=== PATIENT | male | born 1950 | race Caucasian/White ===

== ENCOUNTER 2021-12-30 06:52 | Inpatient (IN) ==
[2021-12-30] MEDS ORDERED: SODIUM CHLORIDE 0.9% 1,000 ML IV STA ×2 (07:33→09:01)
[2021-12-30] MEDS ORDERED: ONDANSETRON 4 MG/2 ML VIAL IV STA (07:33)
[2021-12-30] MEDS ORDERED: HYDROmorphone 1 MG/1 ML SYRINGE IV STA ×2 (07:33→09:39)
[2021-12-30 08:00] LABS: Basophils # 0.1 10*3/uL (0.0-0.2); Basophils % 0.4 % (0.0-0.8); Eosinophils % 0.1 % (0.00-10.9); Hematocrit 46.6 VOL% (42.0-52.0); Hemoglobin 15.1 GM/DL (14.0-18.0); Immature Granulocytes % 0.4 %; Immature Granulocytes Absolute 0.08 #; Lymphocytes # 1.8 10*3/uL (1.4-4.0); Lymphocytes % 9.5 % (21.2-54.2); Mean Corpuscular HGB Conc 32.4 GM/DL (32-36); Mean Corpuscular Volume 91.2 FL (87-102); Mean Platelet Volume 10.4 FL (9.6-12.0); Monocytes # 1.1 10*3/uL (0.11-0.8); Monocytes % 5.8 % (1.7-12.7); Neutrophils % 83.8 % (38.7-73.9); Platelet Count 275 T/CUMM (130-400); Red Blood Count 5.11 MC/CUMM (3.8-5.5); Red Cell Distribution Width 14.3 % (9.3-17.3); White Blood Count 18.7 T/CUMM (4-12)
[2021-12-30 08:01] LABS: Mucus,Urine Occasional /LPF (Occasional); Protein,Urine >=300 mg/dL (Negative); RBC,Urine 2 /HPF (0-4); Urine Appearance Clear (Clear); Urine Color Yellow (Yellow); Urine Specific Gravity 1.025 (1.001-1.035)
[2021-12-30 08:02] LABS: Bilirubin,Urine Small mg/dL (Negative); Blood, Urine Small mg/dL (Negative); Glucose,Urine (UA) 100 mg/dL (Negative); Ketones,Urine Negative (Negative); Nitrite,Urine Negative (Negative)
[2021-12-30 08:29] LABS: Alanine Aminotransferase 342 U/L (16-61); Albumin 3.6 G/DL (3.4-5.0); Alkaline Phosphatase 241 U/L (45-117); Aspartate Amino Transferase 271 U/L (0-37); Blood Urea Nitrogen 32 MG/DL (7-18); Calcium 10.1 MG/DL (8.5-10.1); Carbon Dioxide 23 MMOL/L (21-32); Chloride 105 MMOL/L (98-107); Glucose 245 MG/DL (74-106); Osmolality,Calculated 289.7 MOS/KG (273-304); Potassium 4.4 MMOL/L (3.5-5.1); Sodium 138 MMOL/L (136-145); Total Protein 7.3 G/DL (6.4-8.2)
[2021-12-30] MEDS ORDERED: PIPERACILLIN/TAZOBACTAM 3,375 MG in SODIUM CHLORIDE 0.9% 100 ML IV STA (08:41)
[2021-12-30] MEDS ORDERED: HYDROmorphone 1 MG/1 ML SYRINGE IV PRN (13:27)
[2021-12-30] MEDS: SODIUM CHLORIDE 0.45% 1,000 ML IV SCH (13:35)
[2021-12-30] MEDS: hydroCHLOROthiazide 25 MG TABLET PO SCH (14:19)
[2021-12-30] MEDS ORDERED: CALCIUM CARBONATE CHEW 500 MG TABLET PO PRN (14:57)
[2021-12-30] MEDS: allopurinoL 100 MG TABLET PO SCH (15:30)
[2021-12-30] MEDS: LOSARTAN 50 MG TABLET PO SCH (15:31)
[2021-12-30] MEDS: POLYETHYLENE GLYCOL POWDER 17 GM PACK PO SCH (16:12)
[2021-12-30] MEDS: PIPERACILLIN/TAZOBACTAM 3,375 MG in SODIUM CHLORIDE 0.9% 100 ML IV SCH (17:13)
[2021-12-30] MEDS: DOCUSATE SODIUM 100 MG CAPSULE PO SCH (21:21)
[2021-12-30] MEDS: PANTOPRAZOLE 40 MG TABLET PO SCH (21:21)
[2021-12-30] MEDS: diphenhydrAMINE CAP 25 MG CAPSULE PO SCH (21:21)
[2021-12-31] MEDS: SODIUM CHLORIDE 0.45% 1,000 ML IV SCH (00:07)
[2021-12-31] MEDS: PIPERACILLIN/TAZOBACTAM 3,375 MG in SODIUM CHLORIDE 0.9% 100 ML IV SCH ×3 (00:07→20:54)
[2021-12-31 05:07] LABS: Basophils # 0.1 10*3/uL (0.0-0.2); Basophils % 0.4 % (0.0-0.8); Eosinophils # 0.1 10*3/uL (0.0-0.87); Eosinophils % 1.2 % (0.00-10.9); Hemoglobin 10.5 GM/DL (14.0-18.0); Immature Granulocytes % 0.4 %; Immature Granulocytes Absolute 0.05 #; Lymphocytes # 1.2 10*3/uL (1.4-4.0); Lymphocytes % 10.3 % (21.2-54.2); Mean Corpuscular HGB Conc 31.8 GM/DL (32-36); Mean Platelet Volume 10.7 FL (9.6-12.0); Monocytes # 0.9 10*3/uL (0.11-0.8); Monocytes % 7.7 % (1.7-12.7); Platelet Count 148 T/CUMM (130-400); Red Blood Count 3.55 MC/CUMM (3.8-5.5); Red Cell Distribution Width 14.3 % (9.3-17.3); White Blood Count 11.2 T/CUMM (4-12)
[2021-12-31 05:22] LABS: INR 1.1; PT Patient Result 11.9 SECS (10.5-12.0)
[2021-12-31 05:33] LABS: Albumin 2.4 G/DL (3.4-5.0); Bilirubin,Total 1.5 MG/DL (0.20-1.00); Calcium 8.1 MG/DL (8.5-10.1); Osmolality,Calculated 286.7 MOS/KG (273-304); Potassium 4.3 MMOL/L (3.5-5.1); Total Protein 5.8 G/DL (6.4-8.2)
[2021-12-31] MEDS: SODIUM CHLORIDE 0.9% 1,000 ML IV SCH ×4 (07:31→21:00)
[2021-12-31] MEDS ORDERED: INDOMETHACIN SUPP 50 MG SUPP RECTAL ONE (08:00)
[2021-12-31] MEDS ORDERED: MAGNESIUM SULF RIDER 2 GM/50 ML PREMIX IV ONE (08:00)
[2021-12-31] MEDS ORDERED: MAGNESIUM SULF RIDER 4 GM/100 ML PREMIX IV PRN (08:14)
[2021-12-31] MEDS ORDERED: MAGNESIUM SULF RIDER 2 GM/50 ML PREMIX IV PRN (08:14)
[2021-12-31] MEDS ORDERED: ONDANSETRON 4 MG/2 ML VIAL ONE (08:38)
[2021-12-31] MEDS ORDERED: propofoL 200 MG/20 ML VIAL IV ONE (08:38)
[2021-12-31] MEDS ORDERED: SUCCINYLCHOLINE 200 MG/10 ML VIAL ONE (08:38)
[2021-12-31] MEDS ORDERED: MIDAZOLAM 2 MG/2 ML VIAL ONE (08:39)
[2021-12-31] MEDS ORDERED: fentaNYL 100 MCG/2 ML VIAL ONE (08:39)
[2021-12-31] MEDS ORDERED: PHENYLEPHRINE 1 MG/10 ML SYRINGE IV ONE (09:17)
[2021-12-31] MEDS ORDERED: ROCURONIUM 50 MG/5 ML VIAL IV ONE (09:17)
[2021-12-31] MEDS: LACTATED RINGERS 1,000 ML IV SCH (09:40)
[2021-12-31] MEDS: PANTOPRAZOLE 40 MG TABLET PO SCH (10:46)
[2021-12-31] MEDS: LOSARTAN 50 MG TABLET PO SCH (10:46)
[2021-12-31] MEDS: hydroCHLOROthiazide 25 MG TABLET PO SCH (10:46)
[2021-12-31] MEDS: DOCUSATE SODIUM 100 MG CAPSULE PO SCH ×2 (10:46→20:53)
[2021-12-31] MEDS: allopurinoL 100 MG TABLET PO SCH (10:47)
[2021-12-31] MEDS: CETIRIZINE 10 MG TABLET PO SCH (10:47)
[2021-12-31] MEDS: diphenhydrAMINE CAP 25 MG CAPSULE PO SCH (20:53)
[2022-01-01] MEDS: PIPERACILLIN/TAZOBACTAM 3,375 MG in SODIUM CHLORIDE 0.9% 100 ML IV SCH ×4 (04:05→22:05)
[2022-01-01] MEDS: SODIUM CHLORIDE 0.9% 1,000 ML IV SCH ×4 (04:06→21:15)
[2022-01-01 05:27] LABS: Basophils # 0.1 10*3/uL (0.0-0.2); Basophils % 0.8 % (0.0-0.8); Eosinophils # 0.4 10*3/uL (0.0-0.87); Eosinophils % 4.7 % (0.00-10.9); Hematocrit 34.4 VOL% (42.0-52.0); Hemoglobin 10.7 GM/DL (14.0-18.0); Immature Granulocytes % 0.5 %; Immature Granulocytes Absolute 0.04 #; Lymphocytes # 1.3 10*3/uL (1.4-4.0); Lymphocytes % 15.8 % (21.2-54.2); Mean Corpuscular HGB Conc 31.1 GM/DL (32-36); Mean Corpuscular Volume 93.5 FL (87-102); Mean Platelet Volume 10.7 FL (9.6-12.0); Monocytes # 0.6 10*3/uL (0.11-0.8); Monocytes % 7.2 % (1.7-12.7); Platelet Count 148 T/CUMM (130-400); Red Blood Count 3.68 MC/CUMM (3.8-5.5); Red Cell Distribution Width 14.4 % (9.3-17.3); White Blood Count 8.4 T/CUMM (4-12)
[2022-01-01 05:45] LABS: Calcium 7.8 MG/DL (8.5-10.1); Osmolality,Calculated 286.5 MOS/KG (273-304); Potassium 4.4 MMOL/L (3.5-5.1)
[2022-01-01] MEDS ORDERED: TISSUE ADHESIVE 1 EACH APPLICATOR TOP ONE (06:24)
[2022-01-01] MEDS ORDERED: MIDAZOLAM 2 MG/2 ML VIAL ONE (06:35)
[2022-01-01] MEDS ORDERED: LIDOCAINE 2% 5 ML VIAL ONE (06:35)
[2022-01-01] MEDS ORDERED: propofoL 200 MG/20 ML VIAL IV ONE (06:35)
[2022-01-01] MEDS ORDERED: fentaNYL 100 MCG/2 ML VIAL ONE ×2 (06:35→08:51)
[2022-01-01] MEDS ORDERED: PHENYLEPHRINE 1 MG/10 ML SYRINGE IV ONE (06:37)
[2022-01-01] MEDS ORDERED: ONDANSETRON 4 MG/2 ML VIAL ONE (06:37)
[2022-01-01] MEDS ORDERED: SUCCINYLCHOLINE 200 MG/10 ML VIAL ONE (06:40)
[2022-01-01] MEDS ORDERED: ROCURONIUM 50 MG/5 ML VIAL IV ONE (06:41)
[2022-01-01] MEDS ORDERED: ePHEDrine 50 MG/ML VIAL ONE (07:27)
[2022-01-01] MEDS ORDERED: SODIUM CHLORIDE 0.9% 1,000 ML IV ONE (08:06)
[2022-01-01] MEDS ORDERED: NEOSTIGMINE 10 MG/10 ML VIAL ONE (09:00)
[2022-01-01] MEDS ORDERED: ACETAMINOPHEN INJ 1,000 MG/100 ML VIAL IV ONE (09:34)
[2022-01-01] MEDS ORDERED: SEVOFLURANE 1 UNIT/15 MINUTE INH ONE (09:56)
[2022-01-01] MEDS ORDERED: NALOXONE 0.4 MG/ML VIAL IV PRN (10:30)
[2022-01-01] MEDS ORDERED: ONDANSETRON 4 MG/2 ML VIAL IV PRN (10:35)
[2022-01-01] MEDS: HYDROmorphone 1 MG/1 ML SYRINGE IV PRN ×2 (10:38→10:50)
[2022-01-01] MEDS: ONDANSETRON 4 MG/2 ML VIAL IV PRN (10:38)
[2022-01-01] MEDS: HYDROmorphone PCA 30 MG/30 ML SYRINGE IV SCH (11:21)
[2022-01-01] MEDS: LACTATED RINGERS 1,000 ML IV SCH (11:29)
[2022-01-01] MEDS: DOCUSATE SODIUM 100 MG CAPSULE PO SCH ×2 (12:27→21:03)
[2022-01-01] MEDS: PANTOPRAZOLE 40 MG TABLET PO SCH (12:27)
[2022-01-01] MEDS: allopurinoL 100 MG TABLET PO SCH (12:28)
[2022-01-01] MEDS: CETIRIZINE 10 MG TABLET PO SCH (12:28)
[2022-01-01] MEDS: METHOCARBAMOL INJ 500 MG in SODIUM CHLORIDE 0.9% 100 ML IV SCH ×2 (13:04→21:05)
[2022-01-01] MEDS ORDERED: hydrALAZINE 20 MG/1 ML VIAL IV PRN (14:50)
[2022-01-01] MEDS: POLYETHYLENE GLYCOL POWDER 17 GM PACK PO SCH (18:13)
[2022-01-01] MEDS: METOPROLOL TARTRATE 25 MG TABLET PO SCH (21:03)
[2022-01-01] MEDS: diphenhydrAMINE CAP 25 MG CAPSULE PO SCH (21:03)
[2022-01-02] MEDS: METHOCARBAMOL INJ 500 MG in SODIUM CHLORIDE 0.9% 100 ML IV SCH ×3 (03:32→20:27)
[2022-01-02] MEDS: PIPERACILLIN/TAZOBACTAM 3,375 MG in SODIUM CHLORIDE 0.9% 100 ML IV SCH ×3 (04:30→21:18)
[2022-01-02] MEDS: SODIUM CHLORIDE 0.9% 1,000 ML IV SCH ×3 (04:37→15:53)
[2022-01-02 06:27] LABS: Basophils # 0.1 10*3/uL (0.0-0.2); Basophils % 0.6 % (0.0-0.8); Eosinophils # 0.1 10*3/uL (0.0-0.87); Eosinophils % 1.2 % (0.00-10.9); Hematocrit 37.7 VOL% (42.0-52.0); Hemoglobin 11.6 GM/DL (14.0-18.0); Immature Granulocytes % 0.6 %; Immature Granulocytes Absolute 0.06 #; Lymphocytes # 0.7 10*3/uL (1.4-4.0); Lymphocytes % 6.6 % (21.2-54.2); Mean Corpuscular HGB Conc 30.8 GM/DL (32-36); Mean Platelet Volume 10.3 FL (9.6-12.0); Monocytes # 0.7 10*3/uL (0.11-0.8); Monocytes % 6.1 % (1.7-12.7); Neutrophils % 84.9 % (38.7-73.9); Platelet Count 216 T/CUMM (130-400); Red Blood Count 3.97 MC/CUMM (3.8-5.5); Red Cell Distribution Width 14.7 % (9.3-17.3); White Blood Count 10.9 T/CUMM (4-12)
[2022-01-02 06:44] LABS: Potassium 5.4 MMOL/L (3.5-5.1)
[2022-01-02] MEDS: ONDANSETRON 4 MG/2 ML VIAL IV PRN (07:47)
[2022-01-02] MEDS: METOPROLOL TARTRATE 25 MG TABLET PO SCH ×2 (09:26→20:28)
[2022-01-02] MEDS: PANTOPRAZOLE 40 MG TABLET PO SCH (09:35)
[2022-01-02] MEDS: DOCUSATE SODIUM 100 MG CAPSULE PO SCH ×2 (09:35→20:27)
[2022-01-02] MEDS: CETIRIZINE 10 MG TABLET PO SCH (09:35)
[2022-01-02] MEDS: allopurinoL 100 MG TABLET PO SCH (09:35)
[2022-01-02] MEDS: hydrALAZINE 25 MG TABLET PO SCH ×3 (09:37→20:27)
[2022-01-02] MEDS: LACTATED RINGERS 1,000 ML IV SCH (15:52)
[2022-01-02] MEDS: DEXTROSE 5% LACTATED RINGERS 1,000 ML IV SCH ×2 (15:53→21:18)
[2022-01-02] MEDS: diphenhydrAMINE CAP 25 MG CAPSULE PO SCH (20:27)
[2022-01-02] MEDS: HYDROmorphone PCA 30 MG/30 ML SYRINGE IV SCH (21:17)
[2022-01-03] MEDS: DEXTROSE 5% LACTATED RINGERS 1,000 ML IV SCH (02:31)
[2022-01-03] MEDS: METHOCARBAMOL INJ 500 MG in SODIUM CHLORIDE 0.9% 100 ML IV SCH ×2 (03:57→17:45)
[2022-01-03] MEDS: PIPERACILLIN/TAZOBACTAM 3,375 MG in SODIUM CHLORIDE 0.9% 100 ML IV SCH ×3 (04:54→21:08)
[2022-01-03 06:12] LABS: Basophils # 0.1 10*3/uL (0.0-0.2); Eosinophils # 0.5 10*3/uL (0.0-0.87); Eosinophils % 5.7 % (0.00-10.9); Hematocrit 33.7 VOL% (42.0-52.0); Hemoglobin 10.2 GM/DL (14.0-18.0); Immature Granulocytes % 0.8 %; Immature Granulocytes Absolute 0.07 #; Lymphocytes # 0.8 10*3/uL (1.4-4.0); Lymphocytes % 9.5 % (21.2-54.2); Mean Corpuscular HGB Conc 30.3 GM/DL (32-36); Mean Corpuscular Volume 95.5 FL (87-102); Mean Platelet Volume 10.4 FL (9.6-12.0); Monocytes # 0.6 10*3/uL (0.11-0.8); Monocytes % 7.3 % (1.7-12.7); Neutrophils % 75.7 % (38.7-73.9); Platelet Count 189 T/CUMM (130-400); Red Blood Count 3.53 MC/CUMM (3.8-5.5); Red Cell Distribution Width 14.7 % (9.3-17.3); White Blood Count 8.6 T/CUMM (4-12)
[2022-01-03 06:44] LABS: Bilirubin,Total 0.7 MG/DL (0.20-1.00); Potassium 4.7 MMOL/L (3.5-5.1); Total Protein 5.8 G/DL (6.4-8.2)
[2022-01-03] MEDS: CETIRIZINE 10 MG TABLET PO SCH (08:44)
[2022-01-03] MEDS: METOPROLOL TARTRATE 25 MG TABLET PO SCH ×2 (08:44→21:07)
[2022-01-03] MEDS: allopurinoL 100 MG TABLET PO SCH (08:44)
[2022-01-03] MEDS: DOCUSATE SODIUM 100 MG CAPSULE PO SCH ×2 (08:44→21:07)
[2022-01-03] MEDS: hydrALAZINE 25 MG TABLET PO SCH ×3 (08:45→21:07)
[2022-01-03] MEDS: PANTOPRAZOLE 40 MG TABLET PO SCH (08:45)
[2022-01-03] MEDS: ACETAMINOPHEN 325 MG TABLET PO PRN (08:46)
[2022-01-03] MEDS: SODIUM CHLORIDE 0.9% 1,000 ML IV SCH (09:10)
[2022-01-03] MEDS: POLYETHYLENE GLYCOL POWDER 17 GM PACK PO SCH (16:58)
[2022-01-03] MEDS ORDERED: CALCIUM CARBONATE CHEW 500 MG TABLET PO PRN (18:30)
[2022-01-03] MEDS: diphenhydrAMINE CAP 25 MG CAPSULE PO SCH (21:08)
[2022-01-04] MEDS: METHOCARBAMOL INJ 500 MG in SODIUM CHLORIDE 0.9% 100 ML IV SCH (03:28)
[2022-01-04] MEDS: PIPERACILLIN/TAZOBACTAM 3,375 MG in SODIUM CHLORIDE 0.9% 100 ML IV SCH ×3 (04:00→21:32)
[2022-01-04 05:03] LABS: Basophils # 0.1 10*3/uL (0.0-0.2); Basophils % 0.7 % (0.0-0.8); Eosinophils # 0.6 10*3/uL (0.0-0.87); Eosinophils % 5.6 % (0.00-10.9); Hematocrit 32.2 VOL% (42.0-52.0); Hemoglobin 10.1 GM/DL (14.0-18.0); Immature Granulocytes % 0.5 %; Immature Granulocytes Absolute 0.05 #; Lymphocytes # 0.9 10*3/uL (1.4-4.0); Lymphocytes % 9.5 % (21.2-54.2); Mean Corpuscular HGB Conc 31.4 GM/DL (32-36); Mean Corpuscular Volume 93.6 FL (87-102); Mean Platelet Volume 10.2 FL (9.6-12.0); Monocytes # 0.8 10*3/uL (0.11-0.8); Monocytes % 7.6 % (1.7-12.7); Neutrophils % 76.1 % (38.7-73.9); Platelet Count 174 T/CUMM (130-400); Red Blood Count 3.44 MC/CUMM (3.8-5.5); Red Cell Distribution Width 14.6 % (9.3-17.3); White Blood Count 9.9 T/CUMM (4-12)
[2022-01-04 05:29] LABS: Potassium 4.4 MMOL/L (3.5-5.1)
[2022-01-04] MEDS: allopurinoL 100 MG TABLET PO SCH (08:51)
[2022-01-04] MEDS: DOCUSATE SODIUM 100 MG CAPSULE PO SCH ×2 (08:51→21:31)
[2022-01-04] MEDS: PANTOPRAZOLE 40 MG TABLET PO SCH (08:51)
[2022-01-04] MEDS: METOPROLOL TARTRATE 25 MG TABLET PO SCH ×3 (08:52→21:33)
[2022-01-04] MEDS: CETIRIZINE 10 MG TABLET PO SCH (08:52)
[2022-01-04] MEDS: hydrALAZINE 25 MG TABLET PO SCH ×3 (08:52→21:33)
[2022-01-04] MEDS: HYDROmorphone PCA 30 MG/30 ML SYRINGE IV SCH ×2 (10:34→12:54)
[2022-01-04] MEDS: SODIUM CHLORIDE 0.9% 1,000 ML IV SCH (10:35)
[2022-01-04] MEDS ORDERED: HYDROmorphone 1 MG/1 ML SYRINGE IV PRN (11:08)
[2022-01-04] MEDS: ACETAMINOPHEN 325 MG TABLET PO PRN (13:45)
[2022-01-04] MEDS: DEXTROSE 5% LACTATED RINGERS 1,000 ML IV SCH ×2 (13:51→13:53)
[2022-01-04] MEDS ORDERED: ENOXAPARIN 40 MG/0.4 ML SYRINGE SUBCUT SCH (17:00)
[2022-01-04] MEDS: diphenhydrAMINE CAP 25 MG CAPSULE PO SCH (21:31)
[2022-01-05] MEDS: DEXTROSE 5% LACTATED RINGERS 1,000 ML IV SCH (04:26)
[2022-01-05 05:50] LABS: Basophils # 0.1 10*3/uL (0.0-0.2); Basophils % 0.8 % (0.0-0.8); Eosinophils # 0.8 10*3/uL (0.0-0.87); Eosinophils % 9.5 % (0.00-10.9); Hematocrit 32.2 VOL% (42.0-52.0); Immature Granulocytes % 0.8 %; Immature Granulocytes Absolute 0.06 #; Lymphocytes % 12.4 % (21.2-54.2); Mean Corpuscular HGB Conc 31.1 GM/DL (32-36); Mean Corpuscular Volume 93.1 FL (87-102); Monocytes # 0.6 10*3/uL (0.11-0.8); Monocytes % 7.2 % (1.7-12.7); Neutrophils % 69.3 % (38.7-73.9); Platelet Count 189 T/CUMM (130-400); Red Blood Count 3.46 MC/CUMM (3.8-5.5); Red Cell Distribution Width 14.6 % (9.3-17.3); White Blood Count 7.9 T/CUMM (4-12)
[2022-01-05 06:04] LABS: Calcium 8.1 MG/DL (8.5-10.1); Osmolality,Calculated 287.1 MOS/KG (273-304); Potassium 4.1 MMOL/L (3.5-5.1)
[2022-01-05] MEDS: PIPERACILLIN/TAZOBACTAM 3,375 MG in SODIUM CHLORIDE 0.9% 100 ML IV SCH ×2 (06:10→11:18)
[2022-01-05 06:11] LABS: Albumin 2.1 G/DL (3.4-5.0); Bilirubin,Direct 0.44 MG/DL (0.0-0.20); Bilirubin,Indirect 0.4 MG/DL (0.0-1.0); Bilirubin,Total 0.8 MG/DL (0.20-1.00); Total Protein 5.3 G/DL (6.4-8.2)
[2022-01-05] MEDS: DOCUSATE SODIUM 100 MG CAPSULE PO SCH (08:28)
[2022-01-05] MEDS: hydroCHLOROthiazide 25 MG TABLET PO SCH (08:28)
[2022-01-05] MEDS: allopurinoL 100 MG TABLET PO SCH (08:28)
[2022-01-05] MEDS: CETIRIZINE 10 MG TABLET PO SCH (08:29)
[2022-01-05] MEDS: PANTOPRAZOLE 40 MG TABLET PO SCH (08:29)
[2022-01-05] MEDS: hydrALAZINE 25 MG TABLET PO SCH (08:29)
[2022-01-05] MEDS: SODIUM CHLORIDE 0.9% 1,000 ML IV SCH (08:38)
[2022-01-05] MEDS: METOPROLOL TARTRATE 25 MG TABLET PO SCH (09:23)
[2022-01-05] MEDS: LOSARTAN 50 MG TABLET PO SCH (09:39)
[2022-01-05] MEDS ORDERED: amLODIPine 5 MG TABLET PO SCH (10:15)
[2022-01-05] MEDS ORDERED: LOSARTAN 50 MG TABLET PO SCH (11:13)
[2022-01-05 12:50] VITALS: BP 176/89
== END 2022-01-05 15:20 | disposition home or self-care (01) | DRG 415 ==
LOC: N.ED 06:52 → N.EDINP 13:22 → N.3E 14:52
PROVIDERS: ADMIT Student in an Organized Health Care Education/Training Program; ATTEND Student in an Organized Health Care Education/Training Program
PROC: ERCPWSP (ICD-10-PCS; 2021-12-31 08:20)
PROC: LAPCHOL (2022-01-01 07:05)

== ENCOUNTER 2022-03-24 11:15 | Observation (INO) ==
[2022-03-24 11:46] LABS: Basophils % 0.3 % (0.0-0.8); Eosinophils # 0.2 10*3/uL (0.0-0.87); Eosinophils % 2.4 % (0.00-10.9); Hematocrit 42.9 VOL% (42.0-52.0); Hemoglobin 13.5 GM/DL (14.0-18.0); Immature Granulocytes % 0.3 %; Immature Granulocytes Absolute 0.02 #; Lymphocytes % 13.5 % (21.2-54.2); Mean Corpuscular HGB Conc 31.5 GM/DL (32-36); Mean Corpuscular Volume 90.9 FL (87-102); Mean Platelet Volume 10.5 FL (9.6-12.0); Monocytes # 0.6 10*3/uL (0.11-0.8); Monocytes % 8.4 % (1.7-12.7); Neutrophils % 75.1 % (38.7-73.9); Platelet Count 172 T/CUMM (130-400); Red Blood Count 4.72 MC/CUMM (3.8-5.5); Red Cell Distribution Width 14.4 % (9.3-17.3); White Blood Count 7.4 T/CUMM (4-12)
[2022-03-24 11:53] LABS: INR 0.9; PT Patient Result 10.4 SECS (10.1-12.1)
[2022-03-24 12:15] LABS: Albumin 3.2 G/DL (3.4-5.0); Bilirubin,Total 0.5 MG/DL (0.20-1.00); Calcium 8.2 MG/DL (8.5-10.1); Osmolality,Calculated 287.4 MOS/KG (273-304); Total Protein 6.8 G/DL (6.4-8.2)
[2022-03-24] MEDS ORDERED: ONDANSETRON 4 MG/2 ML VIAL ONE (13:33)
[2022-03-24] MEDS ORDERED: ASPIRIN CHEW 81 MG TABLET PO STA (13:33)
[2022-03-24] MEDS ORDERED: MORPHINE 2 MG/1 ML SYRINGE ONE (13:33)
[2022-03-24] MEDS ORDERED: MORPHINE 2 MG/1 ML SYRINGE IV STA (13:33)
[2022-03-24] MEDS ORDERED: ONDANSETRON 4 MG/2 ML VIAL IV STA (13:33)
[2022-03-24] MEDS ORDERED: MORPHINE 2 MG/1 ML SYRINGE IV PRN (15:00)
[2022-03-24] MEDS ORDERED: DEXTROSE 10% 250 ML BAG IV PRN (15:00)
[2022-03-24] MEDS ORDERED: GLUCAGON 1 MG VIAL IM PRN (15:00)
[2022-03-24] MEDS ORDERED: ACETAMINOPHEN 325 MG TABLET PO PRN (15:00)
[2022-03-24] MEDS ORDERED: hydrALAZINE 20 MG/1 ML VIAL IV PRN (15:00)
[2022-03-24] MEDS ORDERED: diphenhydrAMINE CAP 25 MG CAPSULE PO PRN (15:18)
[2022-03-24] MEDS ORDERED: MAGNESIUM SULF RIDER 4 GM/100 ML PREMIX IV ONE (18:00)
[2022-03-24] MEDS ORDERED: traZODone 50 MG TABLET PO SCH (21:00)
[2022-03-24] MEDS: hydrALAZINE 25 MG TABLET PO SCH (21:40)
[2022-03-24] MEDS: PANTOPRAZOLE 40 MG TABLET PO SCH (21:41)
[2022-03-24] MEDS: HEPARIN 5,000 UNIT/1 ML VIAL SUBCUT SCH (21:44)
[2022-03-25 04:40] LABS: Basophils % 0.2 % (0.0-0.8); Eosinophils # 0.1 10*3/uL (0.0-0.87); Eosinophils % 1.6 % (0.00-10.9); Hematocrit 33.6 VOL% (42.0-52.0); Hemoglobin 11.1 GM/DL (14.0-18.0); Immature Granulocytes % 0.6 %; Immature Granulocytes Absolute 0.05 #; Lymphocytes # 1.2 10*3/uL (1.4-4.0); Lymphocytes % 14.6 % (21.2-54.2); Mean Corpuscular Volume 90.1 FL (87-102); Mean Platelet Volume 10.7 FL (9.6-12.0); Monocytes # 0.9 10*3/uL (0.11-0.8); Monocytes % 11.3 % (1.7-12.7); Neutrophils % 71.7 % (38.7-73.9); Platelet Count 169 T/CUMM (130-400); Red Blood Count 3.73 MC/CUMM (3.8-5.5); Red Cell Distribution Width 14.2 % (9.3-17.3); White Blood Count 8.1 T/CUMM (4-12)
[2022-03-25 05:11] LABS: Calcium 8.1 MG/DL (8.5-10.1); Potassium 3.5 MMOL/L (3.5-5.1); Risk Ratio 3.79; VLDL Cholesterol 24.4 MG/DL
[2022-03-25 08:03] VITALS: BP 102/58
[2022-03-25] MEDS ORDERED: CETIRIZINE 10 MG TABLET PO SCH (09:00)
[2022-03-25] MEDS ORDERED: ASPIRIN CHEW 81 MG TABLET PO SCH (09:00)
[2022-03-25] MEDS ORDERED: hydroCHLOROthiazide 25 MG TABLET PO SCH (09:00)
[2022-03-25] MEDS: PANTOPRAZOLE 40 MG TABLET PO SCH (09:02)
[2022-03-25] MEDS: HEPARIN 5,000 UNIT/1 ML VIAL SUBCUT SCH (09:04)
[2022-03-25] MEDS: hydrALAZINE 25 MG TABLET PO SCH (09:04)
== END 2022-03-25 12:50 | disposition home or self-care (01) ==
LOC: N.ED 11:15 → N.EDINP 11:15 → SUATTDRO 15:00 → N.EDINP 16:26 → N.2W 17:36
PROVIDERS: ADMIT Internal Medicine; ATTEND Internal Medicine

== ENCOUNTER 2022-03-30 16:40 | Observation (INO) ==
[2022-03-30] MEDS ORDERED: ACETAMINOPHEN 325 MG TABLET PO PRN (16:50)
[2022-03-30] MEDS ORDERED: BISACODYL 5 MG TABLET PO PRN (16:50)
[2022-03-30] MEDS ORDERED: ALUMINUM/MAGNES/SIMETH MAX STR 30 ML UDCUP PO PRN (16:50)
[2022-03-30] MEDS ORDERED: LACTULOSE 20 GM/30 ML UDCUP PO PRN (16:50)
[2022-03-30] MEDS ORDERED: CALCIUM CARBONATE CHEW 500 MG TABLET PO PRN (16:50)
[2022-03-30] MEDS ORDERED: hydrALAZINE 20 MG/1 ML VIAL IV PRN (16:50)
[2022-03-30] MEDS ORDERED: MORPHINE 2 MG/1 ML SYRINGE IV PRN (16:50)
[2022-03-30] MEDS ORDERED: ZALEPLON 5 MG CAPSULE PO PRN (16:50)
[2022-03-30] MEDS ORDERED: SIMETHICONE CHEW 125 MG TABLET PO PRN (16:50)
[2022-03-30] MEDS ORDERED: ONDANSETRON 4 MG/2 ML VIAL IV PRN (16:50)
[2022-03-30] MEDS ORDERED: diphenhydrAMINE CAP 25 MG CAPSULE PO PRN (16:50)
[2022-03-30] MEDS ORDERED: AMIODARONE INJ 150 MG in DEXTROSE 5% 100 ML IV ONE (16:54)
[2022-03-30] MEDS ORDERED: traZODone 50 MG TABLET PO PRN (16:55)
[2022-03-30] MEDS ORDERED: DILTIAZEM INJ 100 MG in SODIUM CHLORIDE 0.9% 100 ML IV SCH (17:00)
[2022-03-30] MEDS ORDERED: AMIODARONE INJ 450 MG in DEXTROSE 5% 241 ML IV SCH ×2 (17:00→23:00)
[2022-03-30 17:31] LABS: Basophils % 0.5 % (0.0-0.8); Eosinophils # 0.3 10*3/uL (0.0-0.87); Eosinophils % 3.4 % (0.00-10.9); Hematocrit 41.5 VOL% (42.0-52.0); Hemoglobin 13.2 GM/DL (14.0-18.0); Immature Granulocytes % 0.5 %; Immature Granulocytes Absolute 0.04 #; Lymphocytes # 1.7 10*3/uL (1.4-4.0); Lymphocytes % 19.8 % (21.2-54.2); Mean Corpuscular HGB Conc 31.8 GM/DL (32-36); Mean Corpuscular Volume 89.1 FL (87-102); Mean Platelet Volume 9.8 FL (9.6-12.0); Monocytes # 0.6 10*3/uL (0.11-0.8); Neutrophils % 68.8 % (38.7-73.9); Platelet Count 278 T/CUMM (130-400); Red Blood Count 4.66 MC/CUMM (3.8-5.5); Red Cell Distribution Width 14.4 % (9.3-17.3); White Blood Count 8.6 T/CUMM (4-12)
[2022-03-30 17:56] LABS: Albumin 2.9 G/DL (3.4-5.0); Bilirubin,Total 0.4 MG/DL (0.20-1.00); Calcium 8.9 MG/DL (8.5-10.1); Osmolality,Calculated 288.3 MOS/KG (273-304); Potassium 4.2 MMOL/L (3.5-5.1)
[2022-03-30 19:27] LABS: Urine Appearance Clear (Clear); Urine Color Yellow (Yellow)
[2022-03-30 19:28] LABS: Bilirubin,Urine Negative (Negative); Blood, Urine Trace mg/dL (Negative); Glucose,Urine (UA) 100 mg/dL (Negative); Ketones,Urine Negative (Negative); Nitrite,Urine Negative (Negative); Protein,Urine >=300 mg/dL (Negative); Urine Specific Gravity >= 1.030 (1.001-1.035); Urine Urobilinogen 0.2 eU/dL (<2.0)
[2022-03-30 19:31] LABS: RBC,Urine 1 /HPF (0-4)
[2022-03-30] MEDS: APIXABAN 5 MG TABLET PO SCH (20:43)
[2022-03-31 05:18] LABS: Basophils # 0.1 10*3/uL (0.0-0.2); Basophils % 0.7 % (0.0-0.8); Eosinophils # 0.5 10*3/uL (0.0-0.87); Eosinophils % 7.3 % (0.00-10.9); Hemoglobin 11.3 GM/DL (14.0-18.0); Immature Granulocytes % 0.7 %; Immature Granulocytes Absolute 0.05 #; Lymphocytes # 1.6 10*3/uL (1.4-4.0); Lymphocytes % 22.4 % (21.2-54.2); Mean Corpuscular HGB Conc 32.3 GM/DL (32-36); Mean Corpuscular Volume 88.8 FL (87-102); Mean Platelet Volume 9.9 FL (9.6-12.0); Monocytes # 0.6 10*3/uL (0.11-0.8); Monocytes % 8.2 % (1.7-12.7); Neutrophils % 60.7 % (38.7-73.9); Platelet Count 249 T/CUMM (130-400); Red Blood Count 3.94 MC/CUMM (3.8-5.5); Red Cell Distribution Width 14.1 % (9.3-17.3); White Blood Count 7.1 T/CUMM (4-12)
[2022-03-31 05:37] LABS: Calcium 8.2 MG/DL (8.5-10.1); Osmolality,Calculated 285.4 MOS/KG (273-304); Potassium 3.7 MMOL/L (3.5-5.1); Risk Ratio 4.93; Thyroid Stimulating Hormone 1.32 uIU/ml (0.358-3.74); VLDL Cholesterol 21.2 MG/DL
[2022-03-31] MEDS ORDERED: POTASSIUM CHLORIDE 20 MEQ TABLET PO ONE (06:31)
[2022-03-31] MEDS ORDERED: MAGNESIUM SULF RIDER 2 GM/50 ML PREMIX IV ONE (06:31)
[2022-03-31] MEDS: APIXABAN 5 MG TABLET PO SCH (08:50)
[2022-03-31] MEDS ORDERED: allopurinoL 300 MG TABLET PO SCH (09:00)
[2022-03-31] MEDS ORDERED: LOSARTAN 50 MG TABLET PO SCH (09:00)
[2022-03-31] MEDS ORDERED: CETIRIZINE 10 MG TABLET PO SCH (09:00)
[2022-03-31] MEDS ORDERED: PANTOPRAZOLE 40 MG TABLET PO SCH (09:00)
[2022-03-31] MEDS ORDERED: AMIODARONE 200 MG TABLET PO ONE (10:30)
[2022-03-31 12:24] VITALS: BP 137/63
[2022-04-01] MEDS ORDERED: AMIODARONE 200 MG TABLET PO SCH (09:00)
== END 2022-03-31 15:36 | disposition home or self-care (01) ==
LOC: N.TELES
PROVIDERS: ADMIT Internal Medicine Cardiovascular Disease; ATTEND Internal Medicine Cardiovascular Disease